=== PATIENT | female | born 1970 | race Caucasian/White ===

== ENCOUNTER 2022-10-10 13:59 | Emergency (ER) | payer OTHER, SELFPAY ==
[2022-10-10] VITALS (10 sets, daily range): BP systolic 115–148; BP diastolic 45–120; PULSE 90–127; RESP 15–29; TEMP 36.2; O2SAT 97–100; BMI 31.2
[2022-10-10] MEDS: LORazepam 2 MG/ML Syringe IV (14:19)
--- NOTE | 2022-10-10 14:19 | EX.ED.DYSGE1 ---
HPI History of Present Illness Chief Complaint: Seizure [facility] Medical History (Updated 10/10/22 @ 17:[address] Patrick Mantilla, ) Seizure Allergy/AdvReac Type Severity Reaction Status Date / Time No Known Allergies Allergy Verified 10/10/22 14:21 Social History Smoking Status: Unknown if ever smoked EXAM Physical Exam Const Vital Signs: 10/10/22 14:00 10/10/22 14:04 10/10/22 14:06 Temperature 97.2 F L Temperature Source Temporal Pulse Rate 127 H 121 H Respiratory Rate 22 H 15 Blood Pressure 148/74 H 139/120 H Blood Pressure Mean 98 126 Pulse Ox 100 Oxygen Delivery Method Ambu-Bag Blow-by Oxygen Flow Rate (L/min) 15 10/10/22 14:24 10/10/22 14:46 10/10/22 15:00 Temperature Temperature Source Pulse Rate 101 H 92 123 H Respiratory Rate 22 H 20 H 25 H Blood Pressure 124/80 H 116/75 138/45 H Blood Pressure Mean 94 88 76 Pulse Ox 97 97 99 Oxygen Delivery Method Nasal Cannula Nasal Cannula Nasal Cannula Oxygen Flow Rate (L/min) 1.5 1.5 2 10/10/22 15:38 10/10/22 16:38 10/10/22 17:17 Temperature Temperature Source Pulse Rate 119 H 95 90 Respiratory Rate 17 21 H 29 H Blood Pressure 136/90 H 134/86 H 119/82 H Blood Pressure Mean 105 102 94 Pulse Ox Oxygen Delivery Method Room Air Room Air Room Air Oxygen Flow Rate (L/min) MDM MDM MDM Narrative Medical decision making narrative: HISTORY OF PRESENT ILLNESS: 52-year-old female here with concern for seizure. Per EMS patient's had a prolonged seizure approxi-15 minutes with no return to baseline. States that gave her approximately 10 mg of IM Versed. They stated patient had difficulty obtaining IV access. States [place]. Patient cannot give reliable history. Per the patient's she has history of PNES and has frequent presentations to the emergency facilities for seizure-like activity. He stated the patient would not want to be intubated. He stated she is usually given psychiatric medicines and left alone and eventually is discharged. REVIEW OF SYSTEMS: Unable to obtain reliable review of systems secondary to acute of condition PHYSICAL EXAM: Nursing triage notes reviewed, Vital signs reviewed Constitutional: please see mdm HENT: MMM Eyes: Pupils equal round and reactive to light, Extraocular muscles intact Neck: No stridor, no JVD, full neck ROM Lungs: Clear to auscultation, No wheezing or rales. No increased work of breathing, no conversational dyspnea, no accessory muscle use, no nasal flaring. No respiratory distress noted Heart: Regular rate and rhythm, No murmurs, No rubs and No gallops, 2+ distal pulses (radial, femoral, posterior tibial) in all extremities Abdomen: Soft, there is no tenderness, rigidity, rebound or guarding, no obvious peritoneal signs, no palpable pulsatile abdominal masses, no auscultated abdominal bruit : No CVAT Extremities: No edema Neuro: Patient was somnolent, having active convulsions, unable to ascertain the patient sensation in her extremities, intact motor function in all 4 extremities, pupils were equal and reactive to light Skin: No rash or lesions noted MEDICAL DECISION MAKING: Chief Complaint: Seizure External records reviewed: Reviewed prior records. Patient had a negative 24-hour EEG in 2018 has had multiple ED evaluations for seizures or PNES Factors affecting care: PNES Social determinants of health: History obtained from others: The patient's Consults: none ALL IMAGES (IF OBTAINED) HAVE BEEN PERSONALLY REVIEWED AND INTERPRETED BY MYSELF. MDM Narrative: Patient was initially tachycardic, tachypneic actively having convulsion. When EMS reported prolonged seizures no return to baseline concern for status epilepticus initially prior to knowing her history of PNES and prior to speaking to her . This prompted me to set up medication for intubation including etomidate and rocuronium. The etomidate was then pushed for sedation. The then called into the emergency department stating the patient should not be intubated if the indication was to stop her seizures and control her airway. He stated patient should be treated symptomatically sedative medicines as needed. I have seen this patient before during a prior visit at another facility. After reviewing her chart noting her history is consistent with PNES decision was made not to intubate the patient or have any advanced airway maneuvers. Patient was calm after etomidate and 2 mg Ativan here. Did obtain labs rule out signs of rhabdomyolysis, arrhythmia etc. Labs are unremarkable. Patient's arrived she woke up was behaving normally no other seizure activity. Etiology likely PNES patient is point for discharge home. The patient and/or family, caregivers express understanding. The patient and/or family, caregivers agrees with the plan. Shared decision making: I will have a discussion with the patient and or visitors regarding risk/benefits of further testing or admission. They will be made aware of of the risk/benefits inherent in this decision they will be given the opportunity to voice understanding. Total critical care time today provided was at least 0 minutes. This excludes separately billable procedures. Critical care time (if documented) is secondary to the patient having high probability of clinically significant/life threatening deterioration in the patient's condition which required my urgent intervention. Lab Data Attestation: I reviewed the patient's lab results. Lab results narrative: CBC without leukocytosis, severe anemia, no thrombocytopenia. BMP without evidence of significant electrolyte abnormalities, no anion gap, no acute kidney injury. LFTs show no evidence of hepatobiliary pathology. Serum alcohol negative Serum negative CK within normal limits Labs: Laboratory Results - last 24 hr 10/10/22 14:00 WBC 8.4 RBC 4.98 Hgb 14.3 Hct 44.6 MCV 89.6 MCH 28.7 MCHC 32.1 RDW Std Deviation 44.7 H RDW Coeff of Maurice 13.6 Plt Count 428 MPV 9.6 Immature Gran % (Auto) 0.200 Neut % (Auto) 57.3 Lymph % (Auto) 30.5 Rooks % (Auto) 6.1 Eos % (Auto) 4.9 Baso % (Auto) 1.0 Absolute Neuts (auto) 4.8 Absolute Lymphs (auto) 2.56 Nucleated RBC % 0 Sodium 139 Potassium 3.5 Chloride 108 H Carbon Dioxide 26.0 Anion Gap 5 BUN 15 Creatinine 0.84 Estim Creat Clear Calc 71.30 Est GFR (MDRD) Af Amer 92 Est GFR (MDRD) Non-Af 76 BUN/Creatinine Ratio 17.9 Glucose 102 Calcium 9.0 Total Bilirubin 0.20 AST 13 L ALT 19 Alkaline Phosphatase 90 Total Creatine Kinase 81 Total Protein 7.8 Albumin 4.0 Globulin 3.8 Albumin/Globulin Ratio 1.1 Serum , Qual NEGATIVE Ethyl Alcohol 6.0 Discharge Plan Triage Chief Complaint: Seizure ED Provider: Patrick Mantilla Dx/Rx/DC Orders Clinical Impression: Psychogenic nonepileptic seizure Instructions: ED Seizure New Onset Unknown ... Activity Restrictions/Additional Instructions: Thank you for trusting us with your care today! Please take Tylenol (2 pills, 650 mg), ibuprofen (2 pills, 400 mg) every 6 hours as needed for pain and fever control. Please return to the emergency department if your symptoms change or worsen. Please not operate her machinery, please do not go swimming alone, please not drive. Please follow with your primary care physician for further outpatient evaluation and management. Disposition Disposition: Home, Self Care
[2022-10-10] MEDS: Etomidate 20 MG/10 ML Vial 30 MG IV (14:20)
--- NOTE | 2022-10-10 14:21 | ED.RN ---
ALLERGIES CONFIRMED BY PT STEP MOM.
--- NOTE | 2022-10-10 14:32 | EKG12_ITS ---
Test Reason : SEIZERS Blood Pressure : / mmHG Vent. Rate : 119 BPM Atrial Rate : 119 BPM P-R Int : 138 ms QRS Dur : 084 ms QT Int : 326 ms P-R-T Axes : 061 -32 -18 degrees QTc Int : 458 ms Sinus tachycardia Left axis deviation Septal infarct , age undetermined Abnormal ECG Confirmed by FRANCIS HEIN ([id number]), movie editor RISHI HERNANDEZ ([id number]) on 10/24/2022 10:54:27 AM Referred By: Confirmed By:FRANCIS HEIN
[2022-10-10 14:59] LABS: Absolute Lymphocyte Count 2.56 X10^3/uL (0.83-4.51); Absolute Neutrophil Count 4.8 X10^3/uL (2.0-7.7); Basophil# 0.08 X10^3/uL; Eosinophil# 0.41 X10^3/uL; Eosinophils% 4.9 % (0-5); Hematocrit 44.6 % (37-47); Hemoglobin 14.3 g/dL (12.0-15.0); Lymphocyte # 2.56 X10^3/ul (0.83-4.51); Lymphocyte % 30.5 % (19-41); Mean Corp Hgb Conc 32.1 g/dL (32-36); Mean Corpuscular Hgb 28.7 pg (27.0-32.0); Mean Corpuscular Volume 89.6 fL (81-99); Mean Platelet Vol. 9.6 fl (6.2-12.0); Monocyte# 0.51 X10^3/uL; Monocyte% 6.1 % (0-10); NRBC Flagged by Analyzer 0 % (0-5); Neutrophil % 57.3 % (47-70); Platelet Count 428 K/mm3 (150-450); RBC Distribution Width CV 13.6 % (11.6-14.6); RBC Distribution Width SD 44.7 fl (35.1-43.9); Red Blood Count 4.98 M/mm3 (4.2-5.4); White Blood Count 8.4 K/mm3 (4.4-11.0)
--- NOTE | 2022-10-10 15:09 | NURSING ---
NO OLD EKGS
[2022-10-10 15:19] LABS: ALB/GLOB Ratio 1.1 RATIO (0.9-2.4); AST(SGOT) 13 U/L (15-37); Alanine Aminotransfer ALT/SGPT 19 U/L (13-56); Alkaline Phosphatase 90 U/L (45-117); Anion Gap 5 (5-15); BUN 15 mg/dL (7-18); BUN/Creat Ratio 17.9 RATIO (10-20); Chloride 108 mmol/L (98-107); Creatinine, Serum 0.84 mg/dL (0.55-1.02); EST Glomerular Filtration Rate 76 mL/min (>60); Est Glom Filt Rate - Afr Amer 92 mL/min (>60); Globulin 3.8 g/dL (2.2-4.2); Glucose 102 mg/dL (74-106); Potassium 3.5 mmol/L (3.5-5.1); Protein, Total 7.8 g/dL (6.4-8.2); Sodium Level 139 mmol/L (136-145)
--- NOTE | 2022-10-10 15:24 | ED.RN ---
PT STARTED HAVING SEIZURE LIKE ACTIVITY AT 1523. THIS RN SUCTIONED PT AND MAINTAINED AIRWAY. DR. CARNEY NOTIFIED AND AT BEDSIDE. PER DR. CARNEY VERBAL ORDER, NO INTERVENTION NEEDED AT THIS TIME. PT DISCONTINUED SEIZURE ACTIVITY AT 1526.
--- NOTE | 2022-10-10 15:34 | ED.RN ---
THIS RN SPOKE TO . HE STATES SHE HAS A KNOWN PSEUDOSEIZURE DISORDER. HE THEN SPOKE TO DR. CARNEY. HIS CONTACT INFO IS [phone]. HE STATES HE IS WITH A CLIENT BUT WILL BE UP AT 1800
--- NOTE | 2022-10-10 15:41 | ED.RN ---
PER DR. CARNEY VERBAL ORDER, OKAY TO WAIT TO OBTAIN URINE.
[2022-10-10 15:53] LABS: Internal QC Validated? YES +Cl - CLEAR BKGD; Pregnancy, Serum, hCG Quali. NEGATIVE Negative
[2022-10-10 17:20] LABS: CPK Total, Creatine Kinase 81 U/L (26-192)
== END 2022-10-10 18:16 | disposition home or self-care (01) ==
LOC: ED 18:08
PROVIDERS: Emergency Provider Emergency Medicine; Visit Provider Emergency Medicine
DX: F44.5 Conversion disorder with seizures or convulsions (principal)
CPT/HCPCS: 80053; 82077; 82550; 84703; 85025; 93005; 96374; 96375; 99285; J7030; A4216